=== PATIENT | female | born 1960 | race Caucasian/White ===

== ENCOUNTER → 2016-05-08 | Outpatient (CLI) | payer BC, MEDICARE ==
--- NOTE | 2016-05-08 10:13 | US ---
EXAMINATION TYPE: US kidneys/renal and bladder DATE OF EXAM: 05/08/2016 9:49 AM COMPARISON: Correlation CT chest 03/17/2016 CLINICAL HISTORY: 55-year-old female N28.89 RENAL MASS OF UNKNOWN NATURE. With abnormal CT, some left flank pain. TECHNIQUE: Multiple sonographic images of the kidneys and bladder were obtained. FINDINGS: Right Kidney: 11.0 x 5.6 x 4.7 cm without hydronephrosis. There is a 2.9 cm simple cyst in the upper pole. Left Kidney: 13.9 x 5.0 x 4.7 cm without hydronephrosis. A few scattered cortical cysts are present, largest in the lower pole measuring 7.8 cm. No gross abnormality of the urine distended bladder. Both ureteral jets are visualized. IMPRESSION: Bilateral simple appearing renal cysts measuring up to 2.9 cm on the right and 7.8 cm on the left. No suspicious renal lesion seen.
== END | disposition home or self-care (01) ==
LOC: RADUSWWP 09:32
PROVIDERS: ATTEND Family Medicine
DX: N28.1 Cyst of kidney, acquired (principal)
CPT/HCPCS: 76770

== ENCOUNTER → 2016-10-31 | Outpatient (CLI) | payer MEDICARE ==
--- NOTE | 2016-10-31 14:03 | CT ---
EXAMINATION TYPE: CT chest wo con DATE OF EXAM: 10/31/2016 COMPARISON: 03/17/2016 HISTORY: 56-year-old female f/u lung nodules, no chest complaints today TECHNIQUE: Contiguous axial scanning of the chest without IV contrast. Coronal and sagittal reconstru ctions performed. CT DLP: 642.0 mGycm Automated exposure control for dose reduction was used. FINDINGS: The heart is normal size without pericardial effusion. Coronary vessel calcifications are present and are a marker for coronary artery disease. Aorta is normal caliber with conventional arch vessel branching anatomy. Minimal atherosclerotic arch calcifications are present. Borderline ectasia lower descending thoracic aorta at 2.5 cm. No thoracic lymphadenopathy. Evaluation of the lungs shows stable 5 mm and 4 mm right mid lung pulmonary nodules axial image 25 an d a tiny 4 mm anterior right middle lobe pulmonary nodule axial image 30. The previous left mid lung 6 normal medial pulmonary nodule has decreased in size. Some similar strandy atelectasis at the medial right middle lobe. No new pulmonary nodule, consolidation, or pleural effusion seen. Visualized upper abdomen again shows low-density lesions in both kidneys measuring up to 3 cm in the right upper pole 1.4 cm anterior left kidney. An additional low-density lesion is partially visualize d in the mid left kidney also probably representing a cyst. A renal ultrasound could attempt further characterization. Bones: Mild endplate spondylosis throughout with ACDF hardware. IMPRESSION: 3 RIGHT-SIDED PULMONARY NODULES MEASURING UP TO 5 MM ARE STABLE FOR 8 MONTHS. THE PREVIOUS 6 MM LEFT MID LUNG PULMONARY NODULE HAS DECREASED IN SIZE. FINDINGS SUGGEST A BENIGN ETIOLOGY FOR THESE NODULES .
== END | disposition home or self-care (01) ==
LOC: RADCTMAIN 13:28
PROVIDERS: ATTEND Internal Medicine Sleep Medicine
DX: R91.8 Other nonspecific abnormal finding of lung field (principal)
CPT/HCPCS: 71250

== ENCOUNTER → 2017-05-21 | Outpatient (CLI) | payer OTHER, MEDICARE ==
--- NOTE | 2017-05-21 09:53 | CT ---
EXAMINATION TYPE: CT chest wo con DATE OF EXAM: 05/21/2017 COMPARISON: 10/31/2016 and 03/17/2016 HISTORY: Solitary pulmonary nodule CT DLP: 455.6 mGycm. Automated Exposure Control for Dose Reduction was Utilized. TECHNIQUE: CT scan of the thorax is performed without IV contrast. FINDINGS: LUNGS: There is stability of the previously seen right upper lobe and right middle lobe pulmonary nod ules adjacent to the interlobar fissures on series 4 image 26 and series 7 image 23 measuring 4 mm an d 5 mm respectively. These are unchanged dating back to 03/17/2016. Additional punctate 2 mm right mi ddle lobe pulmonary nodules also stable from the prior on series 4 image 30. Minimal right middle lob e medial atelectasis is again noted. 3.5 mm left pulmonary nodule on series 4 image 25 is also simila r to the prior exam. No new pulmonary nodule, mass, pleural effusion or pneumothorax. The tracheobron chial tree is patent. MEDIASTINUM: Lack of IV contrast is noted to limit evaluation for mediastinal and especially hilar ad enopathy. There are no definitive greater than 1 cm hilar or mediastinal lymph nodes. No cardiomega ly or pericardial effusion is seen. Moderate three-vessel coronary artery calcifications are incident ally noted. Ascending thoracic aorta is within normal limits measuring 3.1 cm. Main pulmonary artery is also nonenlarged. OTHER: Probable bilateral renal cysts are similar in appearance to the prior with the largest partial ly visualized in the left lower pole measuring 5.5 cm. The liver is diffusely hypoattenuated approach ing criteria for splenomegaly and elongated extending into the left upper quadrant. Prominent gastroh epatic ligament lymph nodes are unchanged from the prior and overall nonenlarged. Mild multilevel deg enerative changes of the thoracic spine with partial visualization of anterior cervical fusion device are again noted. IMPRESSION: 1. Stable subcentimeter bilateral pulmonary nodules dating back to 03/17/2016. Follow-up CT thorax is recommended in one year to determine long-standing stability. If these nodules are unchanged at that time they can be considered benign. 2. Multiple probable bilateral renal cysts are again visualized and renal ultrasound could be perform ed for further evaluation.
== END | disposition home or self-care (01) ==
LOC: RADCTMAIN 08:49
PROVIDERS: ATTEND Internal Medicine Sleep Medicine
DX: R91.8 Other nonspecific abnormal finding of lung field (principal)
CPT/HCPCS: 71250

== ENCOUNTER → 2017-09-04 | Outpatient (CLI) | payer OTHER, MEDICARE ==
--- NOTE | 2017-09-06 11:58 | MM ---
Reason for exam: screening (asymptomatic). Last mammogram was performed 3 years and 6 months ago. History: Patient is postmenopausal. Benign excisional biopsy of the right breast, 1979. Physical Findings: A clinical breast exam by your physician is recommended on an annual basis and results should be correlated with mammographic findings. MG Screening Mammo w CAD Bilateral CC and MLO view(s) were taken. Prior study comparison: March 03, 2014, right breast MG work up mamm w CAD RT. February 24, 2014, bilateral MG screening mammo w CAD. Finding: There are grouped/clustered, fine calcifications in the middle position of the right breast seen on right breast, 4cm from the nipple. New finding since March 03, 2014 and February 24, 2014. ASSESSMENT: Incomplete: need additional imaging evaluation, BI-RAD 0 RECOMMENDATION: Special view mammogram of the right breast. [facility] will attempt to contact patient to return for supplemental views.
== END | disposition home or self-care (01) ==
LOC: RADMAMWWP 07:53
PROVIDERS: ATTEND Family Medicine
DX: Z12.31 Encounter for screening mammogram for malignant neoplasm of breast (principal)
CPT/HCPCS: 77067

== ENCOUNTER → 2017-09-18 | Outpatient (CLI) | payer OTHER, MEDICARE ==
--- NOTE | 2017-09-18 13:55 | MM ---
Reason for exam: additional evaluation requested from abnormal screening. Last mammogram was performed less than 1 month ago. History: Patient is postmenopausal. Benign excisional biopsy of the right breast, 1979. Physical Findings: Nurse did not find any significant physical abnormalities on exam. MG Work Up Mamm w CAD RT CC with magnification, MLO with magnification, ML with magnification, and ML view(s) were taken of the right breast. Prior study comparison: September 04, 2017, bilateral MG screening mammo w CAD. March 03, 2014, right breast MG work up mamm w CAD RT. The breast tissue is heterogeneously dense. This may lower the sensitivity of mammography. There is a persistent upper outer quadrant middle depth mass with associated calcifications measuring 4mm. These results were verbally communicated with the patient and result sheet given to the patient on 09/18/17. ASSESSMENT: Incomplete: need additional imaging evaluation, BI-RAD 0 RECOMMENDATION: Ultrasound of the right breast.
--- NOTE | 2017-09-18 13:58 | USB ---
Reason for exam: additional evaluation requested from abnormal screening. History: Patient is postmenopausal. Benign excisional biopsy of the right breast, 1979. US Breast Workup Limited RT Right limited breast ultrasound including focal area of concern, retroareolar and axilla demonstrates a 0.3 x 0.3 x 0.3cm lesion too small to characterize at 12 o'clock. Possible through transmission on a single images. Therefore if stereotactic biopsy is benign 6 month follow up would be recommended for this mass. If stereotactic is malignant, biopsy of this mass is necessary. These results were verbally communicated with the patient and result sheet given to the patient on 09/18/17. ASSESSMENT: Suspicious, BI-RAD 4 RECOMMENDATION: Stereotactic core biopsy of the right breast. Called Dr. Wilkes with mammographic findings and has scheduled an appointment for the patient for 10/25/17 at 9:[address] Burton. Biopsy scheduled for 09/28/17 at 10:00. PRELIMINARY REPORT CALLED AND FAXED TO DR. BURTON ON 09/18/17.
== END | disposition home or self-care (01) ==
LOC: RADMAMWWP 10:08
PROVIDERS: ATTEND Family Medicine
DX: R92.8 Other abnormal and inconclusive findings on diagnostic imaging of breast (principal)
CPT/HCPCS: 77065

== ENCOUNTER → 2017-09-28 | Day surgery (SDC) | payer OTHER, MEDICARE ==
[2017-09-28 09:17] VITALS: BMI 34.7
[2017-09-28 11:41] VITALS: BP 139/78; PULSE 76; RESP 16; TEMP 98.5
--- NOTE | 2017-09-28 14:32 | MM ---
EXAMINATION TYPE: MG stereo VAD BX RT DATE OF EXAM: 09/28/2017 COMPARISON: 09/04/2017 CLINICAL HISTORY: Indeterminate right breast calcifications for which stereotactic biopsy was recommended. TECHNIQUE: Stereotactic guided core biopsy of the right breast. FINDINGS: FINDINGS: The procedure of stereotactic guided core biopsy was explained to the patient. Benefits, alternatives, and risks were discussed. An informed consent was then obtained. Preprocedural timeout was performed. The shortness pathway for biopsy was chosen. Shortness pathway was CC from above approach. 10 cc of lidocaine buffered with bicarbonate was utilized to anesthetize the subcutaneous tissues and skin surface. 10 cc of lidocaine with epinephrine was then utilized to anesthetize the tissues at the site of biopsy after the needle was advanced to the site of biopsy and preprocedural localization images were obtained. A vacuum assisted biopsy gun was used to obtain 9 core samples. The patient tolerated the procedure well without any immediate complication. The patient was kept in the radiology department for short stay after the procedure and then discharged home in stable condition. Targeted calcifications are identified in specimen mammogram. Post biopsy mammogram shows the clip to appear in satisfactory position relative to the targeted area of concern on the preprocedure images. IMPRESSION: SUCCESSFUL, UNCOMPLICATED STEREOTACTIC GUIDED CORE BIOPSY OF A GROUP OF TARGETED CALCIFICATIONS IN ASSOCIATION WITH A 6 MM MASS WITHIN THE RIGHT BREAST , FULL PATHOLOGY RESULTS TO FOLLOW. Pathology Results: High Risk BREAST, RIGHT, STEREOTACTIC CORE BIOPSY: Intraductal papilloma, focally sclerotic. Background fibrocystic changes including cysts, fibrosis and apocrine metaplasia. Recommendation Surgical consult of the right breast. [place]
== END | disposition home or self-care (01) ==
LOC: RADMAMWWP 08:52
PROVIDERS: ATTEND Surgery
DX: R92.1 Mammographic calcification found on diagnostic imaging of breast (principal); D24.1 Benign neoplasm of right breast; N60.01 Solitary cyst of right breast; N60.31 Fibrosclerosis of right breast; N60.81 Other benign mammary dysplasias of right breast
CPT/HCPCS: 88305; 19081; A4648; J2001

== ENCOUNTER → 2018-04-02 | Outpatient (CLI) | payer OTHER, MEDICARE ==
--- NOTE | 2018-04-04 12:26 | MM ---
Reason for exam: follow-up at short interval from prior study. Last mammogram was performed 6 months ago. History: Patient is postmenopausal and has history of high-risk lesion on a previous biopsy at age 57. High risk MG stereo VAD BX RT of the right breast, September 28, 2017. Benign excisional biopsy of the right breast, 1979. Physical Findings: Patient refused breast exam. MG Diagnostic Mammo RT w CAD CC and MLO view(s) were taken of the right breast. Prior study comparison: September 18, 2017, right breast MG work up mamm w CAD RT. September 04, 2017, bilateral MG screening mammo w CAD. The breast tissue is heterogeneously dense. This may lower the sensitivity of mammography. There are benign-appearing round calcifications in the right breast . Previous right mammotome biopsy. No discrete abnormality. These results were verbally communicated with the patient and result sheet given to the patient on 04/02/18. ASSESSMENT: Benign, BI-RAD 2 RECOMMENDATION: Surgical consultation. For papilloma or biopsy seen 09/28/17. Return to routine screening mammogram schedule for both breasts back on schedule Called Dr. Burton with mammographic findings and has scheduled an appointment for the patient for 05/02/18 at 10:[address] Burton . PRELIMINARY REPORT CALLED AND FAXED TO DR. BURTON ON 04/02/18.
== END | disposition home or self-care (01) ==
LOC: RADMAMWWP 12:18
PROVIDERS: ATTEND Surgery
DX: R92.8 Other abnormal and inconclusive findings on diagnostic imaging of breast (principal)
CPT/HCPCS: 77065

== ENCOUNTER → 2018-05-16 | Outpatient (CLI) | payer OTHER, MEDICARE ==
--- NOTE | 2018-05-16 11:06 | US ---
EXAMINATION TYPE: US duplex aorta DATE OF EXAM: 05/16/2018 COMPARISON: NONE CLINICAL HISTORY: Per order. smoker, No HTN, no family hx AAA EXAM MEASUREMENTS: Abdominal Aorta: Proximal: 2.2 x 1.9 cm Mid: 2.3 x 2.6 cm Distal: 1.4 x 1.6 cm Bifurcation: right- 0.9 x 1.0 cm left- 1.1 cm, only seen in transverse due to bowel gas Limited exam due to overlying bowel gas and patient body habitus Portions obscured by overlying bowel gas. No AAA visualized in portions seen. IMPRESSION: Suboptimal study without convincing ultrasound evidence for greater than 3 cm AAA.
--- NOTE | 2018-05-16 11:10 | US ---
EXAMINATION TYPE: US kidneys/renal and bladder DATE OF EXAM: 05/16/2018 COMPARISON: CTs from 2018 and 2017. Renal ultrasound 2017. CLINICAL HISTORY: R94.4 Abn kidney function test / N28.1 Renal cyst. Hx renal cysts, abn labs EXAM MEASUREMENTS: Right Kidney: 10.2 x 4.9 x 5.3 cm Left Kidney: 13.0 x 4.1 x 4.8 cm Right Kidney: Medial anechoic lesion seen at hilum- 1.6 x 1.3 cm. Upper pole cystic appearing lesion - 2.8 x 3.2 x 3.3 cm Left Kidney: Multiple cystic appearing lesions seen. Largest seen lower pole = 6.8 x 8.2 x 7.5 cm Bladder: distended, wnl Bilateral Jets seen Scanning of the right kidney shows adjacent heterogeneous hyperechoic liver felt to reflect fatty inf iltration. There is redemonstration of simple appearing 3.2 cm cyst right kidney upper pole level. Te chnologist marked smaller hypoechoic to anechoic lesion centrally that is too small to further charac terize a 1.3 cm. Bladder felt within normal limits. Bilateral distal ureter jets are seen. Left kidne y now shows 7.5 cm oval anechoic lesion with increased through transmission mid to lower pole level n ot significant change from 2017 ultrasound. IMPRESSION: Stable Bosniak 2F lesion lower pole left kidney. No new suspicious solid or cystic renal masses. No h ydronephrosis bilaterally.
== END | disposition home or self-care (01) ==
LOC: RADUSWWP 09:58
PROVIDERS: ATTEND Family Medicine
DX: N28.89 Other specified disorders of kidney and ureter (principal); R94.4 Abnormal results of kidney function studies
CPT/HCPCS: 76770; 93979

== ENCOUNTER → 2018-07-01 | Outpatient (CLI) | payer OTHER, MEDICARE ==
--- NOTE | 2018-07-01 11:57 | CT ---
EXAMINATION TYPE: CT chest wo con DATE OF EXAM: 07/01/2018 COMPARISON: CT chest May 21, 2017 and older CTs HISTORY: Follow up known pulmonary nodules. CT DLP: 443.5 mGycm. Automated Exposure Control for Dose Reduction was Utilized. TECHNIQUE: CT scan of the thorax is performed without IV contrast. FINDINGS: LUNGS: There is stable 5 to 6 mm nodule in the right midlung anteriorly axial image 29 unchanged back through March 17, 2016. Subpleural 4 mm nodule axial image 28 is unchanged from 2016. A 4 mm scar like nodule anteriorly right middle lobe axial image 33 is unchanged from 2016. There is medial adjac ent linear scarring redemonstrated. There is stable 4 mm scarlike opacity left midlung axial image 20 unchanged from most recent CT diminished in prominence from 2016 CT. No new nodules or masses. No pl eural effusion or pneumothorax. MEDIASTINUM: Lack of IV contrast is noted to limit evaluation for mediastinal and especially hilar ad enopathy. There are no definitive greater than 1 cm hilar or mediastinal lymph nodes. No cardiomega ly or pericardial effusion is seen. Moderate coronary artery calcification is redemonstrated. OTHER: Liver is diffusely low dense consistent with fatty infiltration. Partial visualization of bila teral renal cysts or cystic lesions similar to prior study. Anterior fusion plate lower cervical spin e is again seen. Moderate multilevel anterior spurring in the thoracic spine is redemonstrated. IMPRESSION: Stable pulmonary nodules from February 2016 consistent with benign etiology.
== END ==
LOC: RADCTMAIN 11:22
PROVIDERS: ATTEND Internal Medicine Sleep Medicine
DX: R91.8 Other nonspecific abnormal finding of lung field (principal)
CPT/HCPCS: 71250

== ENCOUNTER → 2018-11-08 | Outpatient (CLI) | payer OTHER, MEDICARE ==
--- NOTE | 2018-11-09 11:13 | XR ---
EXAMINATION TYPE: XR cervical spine comp DATE OF EXAM: 11/08/2018 COMPARISON: 03/17/2015 HISTORY: M 50.322, M 50.323 TECHNIQUE: Five-view cervical spine FINDINGS: Anterior fusion is present C6-7. Disc spacers present C4 for 5. There is disc space narrowi ng C5-6. Prevertebral space is normal. Posterior spinal lamellar line is intact. There is moderate fo raminal narrowing C4-5 C5-6 on the left. IMPRESSION: 1. Stable postsurgical changes cervical spine. 2. Foraminal stenosis on the left mid and lower cervical spine
== END | disposition home or self-care (01) ==
LOC: RADXRYALE 16:27
PROVIDERS: ATTEND Family Medicine
DX: M48.02 Spinal stenosis, cervical region (principal); Z98.890 Other specified postprocedural states
CPT/HCPCS: 72050

== ENCOUNTER → 2019-12-12 | Outpatient (CLI) | payer OTHER, MEDICARE ==
--- NOTE | 2019-12-12 16:00 | US ---
EXAMINATION TYPE: US kidneys/renal and bladder DATE OF EXAM: 12/12/2019 COMPARISON: NONE CLINICAL HISTORY: N28.1 CKD 3, CYSTS. EXAM MEASUREMENTS: Right Kidney: 10.6 x 5.2 x 4.9 cm Left Kidney: 12.9 x 4.4 x 4.2 cm Right Kidney: 2 cysts, 1.) 3.3 x 3.1 x 3.0cm, 2.)1.5 x 1.2 x 1.4cm Left Kidney: 3 cysts noted, largest measuring 7.9 x 8.2 x 7.2cm and 2.3 x 1.5 x 2.0cm Bladder: wnl Bilateral Jets seen: yes *Spleen measures 13.2cm IMPRESSION: 1. Bilateral renal cysts
== END | disposition home or self-care (01) ==
LOC: RADUSWWP 13:59
PROVIDERS: ATTEND Internal Medicine Nephrology
DX: N28.1 Cyst of kidney, acquired (principal)
CPT/HCPCS: 76770

== ENCOUNTER → 2020-03-06 | Outpatient (CLI) | payer OTHER, MEDICARE ==
--- NOTE | 2020-03-06 13:08 | MR ---
EXAMINATION TYPE: MR cervical spine wo con DATE OF EXAM: 03/06/2020 COMPARISON: 06/05/2014 HISTORY: Neck pain, BUE weakness, hx surgery The planar multiecho imaging of the cervical spine was performed without contrast. FINDINGS: Vertebra have normal alignment. There is metal artifact from anterior fusion surgery at C4-5. The met al artifact obscures the spinal canal to a large extent at C4-5. There is probably some spinal stenos is. This is not well evaluated. There is previous anterior fusion surgery at C5-6. The visualized brainstem is intact. There is no co mpression fracture. The posterior elements are intact. Spinal mass. There is anterior fusion surgery at C6-7. IMPRESSION: Fusion surgery at C4-5 is a change compared to old exam. Unfortunately there is significant metal art ifact that obscures the spinal canal to a large extent and the possibility of spinal stenosis at C4-5 cannot be evaluated. No evidence of spinal stenosis in the other levels of the cervical spine. If there is persistent clinical indication to evaluate for spinal stenosis then the myelogram is [place]en[place] mmended.
== END | disposition home or self-care (01) ==
LOC: RADMRIMAIN 12:00
PROVIDERS: ATTEND Family Medicine
DX: M54.2 Cervicalgia (principal); Z98.1 Arthrodesis status
CPT/HCPCS: 72141

== ENCOUNTER → 2024-01-16 | Outpatient (CLI) | payer MEDICARE ==
--- NOTE | 2024-01-21 10:11 | XR ---
EXAMINATION TYPE: XR elbow complete RT DATE OF EXAM: 01/16/2024 11:52 AM INDICATION: Patient age:Female; 63 years old; Reason for study: [id number] RT ELBOW PAIN; [facility]. COMPARISON: None TECHNIQUE: The right elbow was examined in AP, lateral, and oblique projections. FINDINGS: No evidence of any acute osseous pathology, joint dislocation, or soft tissue swelling is n oted. No evidence of joint effusion is present. IMPRESSION: No evidence of acute fracture. [facility], , 01/21/2024 10:09 AM
== END | disposition home or self-care (01) ==
LOC: RADXRYALE 11:31
PROVIDERS: ATTEND Physician Assistant Medical
DX: M25.521 Pain in right elbow (principal)